=== PATIENT | male | born 1990 | race Caucasian/White ===

== ENCOUNTER → 2017-03-18 | Outpatient (CLI) | payer OTHER ==
[~2017-03-18] MED LIST: ADVI200C5 PO; CELE20TA PO; CIPR500T3 PO; FLOM5CAP PO; HYDR1CAP25 PO; MINI2CAP PO; TRAZ50TA11 PO
--- NOTE | 2017-03-19 08:10 | REP ---
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 Comparison CT study June 05, 2016. Gadolinium enhancement dose: 22 mL of intravenous ProHance. MR technique: Axial and coronal imaging planes were utilized. T1 and T2-weighted sequences include turbo spin echo, FLAIR, spin echo, 3-D gradient echo, and diffusion weighted scanning. Pre and post gadolinium imaging of the posterior fossa and whole brain are included. MRI findings: There is a mucous retention cyst in the right maxillary sinus. No intraorbital abnormality is seen. No bony calvarial lesion is seen. Beard white differentiation pattern is normal above and below the tentorium. There is no evidence of hydrocephalous, intracranial mass or cyst. No CP angle cistern mass lesion is seen on either side. The internal auditory canals are normal and symmetric. No abnormal gadolinium enhancement is seen to suggest intracanalicular or extra canalicular neoplasm. Cochlear and vestibular apparatus appear intact bilaterally. No middle ear fluid is appreciated. Post gadolinium enhanced images show no abnormal gadolinium enhancement. Diffusion weighted scan show no evidence to suggest acute ischemia. Impression: Normal MRI study of the internal auditory canals and brain without and with gadolinium. Signed by Jake Butcher MD 03/19/2017 09:12 A
== END ==
LOC: M RAD 17:07
PROVIDERS: ATTEND Otolaryngology
DX: H90.42 Sensorineural hearing loss, unilateral, left ear, with unrestricted hearing on the contralateral side (principal)
CPT/HCPCS: 70553; A9576